=== PATIENT | male | born 1970 | race Caucasian/White ===

== ENCOUNTER → 2018-03-15 | Outpatient (CLI) | payer BC ==
[~2018-03-15] VITALS: Ht 170.2 cm; Wt 99.8 kg
[~2018-03-15] MED LIST: OMEPRAZOLE10 M1 PO; OMEPRAZOLE40 M1 PO
== END | disposition home or self-care (01) ==
LOC: AMB 10:14
PROC: 0DB58ZX Excision of Esophagus, Via Natural or Artificial Opening Endoscopic, Diagnostic (ICD-10-PCS; principal; 2018-03-15)
DX: K21.0 Gastro-esophageal reflux disease with esophagitis (principal); R13.10 Dysphagia, unspecified; Z87.891 Personal history of nicotine dependence; Z88.0 Allergy status to penicillin
CPT/HCPCS: 88305; J2250